=== PATIENT | male | born 1980 | race Caucasian/White ===

== ENCOUNTER → 2019-04-08 | Outpatient (CLI) | payer OTHER | LOC: MC.RAD 13:33 | DX: N63.20 Unspecified lump in the left breast, unspecified quadrant (principal) ==

== ENCOUNTER → 2021-08-07 | Outpatient (CLI) | payer OTHER | LOC: MC.RAD 10:41 | DX: D17.79 Benign lipomatous neoplasm of other sites (principal) ==